=== PATIENT | male | born 1965 | race Hispanic/Latino ===

== ENCOUNTER 2017-02-19 07:07 | Inpatient (IN) | payer MEDICARE, OTHER ==
[2017-02-19 08:08] LABS: #Lymphocytes 0.6 thou/uL (1.20-3.40); #Monocytes 0.4 thou/uL (0.11-0.59); %Basophils 0.3 % (0.0-1.0); %Eosinophils 0.5 % (0.0-10.0); %Lymphocytes 10.2 % (21.0-51.0); %Monocytes 5.8 % (0.0-10.0); Mean Platelet Volume 7.8 fL (7.4-10.4); Red Blood Cell (RBC) Count 3.02 mill/uL (4.70-6.10)
[2017-02-19 08:32] LABS: ALT (SGPT) 31 U/L (8-55); AST (SGOT) 31 U/L (5-34); Alkaline Phosphatase 98 U/L (40-150); Anion Gap 33 mmol/L (10-20); BUN (Urea Nitrogen) 100 mg/dL (8.9-20.6); Bilirubin, Total 0.3 mg/dL (0.2-1.2); Calc. Creatinine Clearance 0 mL/min (70-130); Calcium 8.4 mg/dL (7.8-10.44); Carbon Dioxide 11 mmol/L (22-29); Chloride 85 mmol/L (98-107); Estimated GFR-MDRD 3; Globulin 2.6 g/dL (2.4-3.5); Lipase 437 U/L (8-78); Magnesium 2.4 mg/dL (1.6-2.6)
[2017-02-19 08:32] LABS: Troponin I 0.013 ng/mL (< 0.028)
[2017-02-19 08:39] LABS: Phosphorus 11.7 mg/dL (2.3-4.7)
[2017-02-19] MEDS ORDERED: Insulin Regular 300 UNITS/3 ML VIAL ONE (09:27)
[2017-02-19] MEDS ORDERED: Ondansetron HCl/PF 4 MG/2 ML Vial ONE (09:27)
[2017-02-19] MEDS ORDERED: Insulin Regular 100 units/100 ml in NS IVPB SCH (09:45)
--- NOTE | 2017-02-19 09:58 | RAD ---
CHEST 1 VIEW: HISTORY: Nausea, vomiting, diarrhea. COMPARISON: Chest 1 view 12/18/16. FINDINGS: Heart size is upper limits of normal. No pneumothorax or effusion. IMPRESSION: Cardiac size upper limits of normal. POS: [facility]
[2017-02-19] MEDS ORDERED: Ondansetron HCl/PF 4 MG/2 ML Vial IVP PRN (11:14)
[2017-02-19] MEDS ORDERED: Ondansetron ODT 4 MG TAB SL PRN (11:14)
[2017-02-19] MEDS ORDERED: Sodium Chloride 0.9% 1,000 ML IV SCH ×2 (11:14→15:45)
[2017-02-19 11:21] VITALS: BMI 27.8
[2017-02-19] MEDS ORDERED: Epoetin (ESRD) 20,000 UNITS/ML SC SCH (14:00)
--- NOTE | 2017-02-19 15:19 | HP ---
HISTORY OF PRESENT ILLNESS: Mr. Winslow is a 51-year-old male who came to the ER earlier toda y with complaint of generalized weakness, diffuse body ache and according to the patient, his proble ms started day before yesterday with multiple episodes of diarrhea and also vomiting. He was evalua jami in the ER, he was found to have elevated blood sugar. We have a glucose of 682 and he was also noticed to be very acidotic. He is being admitted because of DKA. He denies any associated fever. PAST MEDICAL HISTORY: Remarkable for insulin-requiring diabetes mellitus which was diagnosed about 25 years ago and he claims that he has been compliant to his insulin. He is also known to have hist ory of diabetic retinopathy. He had previous laser therapy in the past. He is known to have hypert ension, previous CVA about 2 months ago and also he has end-stage renal disease, he was on dialysis. He started dialysis about 2 years ago and more recently he had a PD catheter placed and he is to [facility] peritoneal dialysis. He denies any history of chronic lung disease. He denies heart disease, denies liver disease. PAST SURGICAL HISTORY: Remarkable for dialysis access placement. He claims to have allergy to metf ormin, which caused him to have a skin rash. SOCIAL HISTORY: He is a former smoker. Last time he smoked was more than 20 years ago. He denies ETOH abuse. He denies drug abuse. FAMILY HISTORY: Reviewed and is remarkable for hypertension and also diabetes mellitus. MEDICATIONS: Prior to admission, he was on alprazolam, amlodipine, aspirin 325 mg daily, Lipitor 40 mg every day, carvedilol, gabapentin, Humalog and also detemir insulin. REVIEW OF SYSTEMS: CONSTITUTIONAL: Admits to generalized weakness. He denies any fever. HEENT: No headache, no ocular pain, no sore throat, no rhinorrhea, no earache, no epistaxis. NECK: No neck pain, no neck stiffness. CARDIOVASCULAR: No shortness of breath. No chest pain. PULMONARY: No coughing. GASTROINTESTINAL: Admits to diarrhea, vomiting, no abdominal pain. GENITOURINARY: No dysuria, no hematuria. ENDOCRINOLOGY: No heat or cold intolerance. Admits to polydipsia. MUSCULOSKELETAL: Admits to diffuse muscle pain. HEMATOLOGY: No abnormal bleeding, no ecchymosis. LYMPHATIC: No palpable lymphadenopathy, no painful lymphadenopathy. SKIN: No rash, no itching. ALLERGIES: No hay fever. NEUROLOGIC: No seizure. PSYCHIATRIC: No anxiety, no depression. PHYSICAL EXAMINATION: GENERAL: At the current time, he is alert, oriented, sick looking. VITAL SIGNS: His latest vital signs show a temperature of 98.6, pulse rate 63, respiratory rate 18, blood pressure 129/52. HEENT: His head is normocephalic and atraumatic. Both his pupils are equal, reactive. Ears and no se normal. Oral mucosa is moist. Pharyngeal area is clear with no exudate, no hyperemia. NECK: Supple. There is no distention of the jugular vein. No lymphadenopathy felt. Thyroid gland not palpable. There is no carotid bruit. Chest symmetrical with regular S1, S2. CHEST: Lungs are clear. ABDOMEN: Soft. Bowel sounds are heard. Could not appreciate any organomegaly. There is a periton eal dialysis catheter in place. Exit site is right limb. EXTREMITIES: He has some skin changes in both lower extremities consistent with venous insufficienc y. NEUROLOGIC: Neurologically, he moves all extremities. LABORATORY DATA: CBC showed WBC of 6, hemoglobin of 9.8, hematocrit of 30, MCV of 94.4, platelet 16 1. Chemistry and electrolytes show sodium of 123, potassium 5.7, chloride 85, CO2 11, BUN 100, crea tinine 17.73, glucose 682, calcium 8.4, phosphorus 11.7, magnesium 2.4, bilirubin 0.3, AST 31, ALT 3 1, alkaline phosphatase 98. Troponin is 0.013. BNP 649, total protein 6, albumin 3.4, globulin 2.6 , lipase 473. Beta hydroxybutyrate is 5.66. His chest x-ray was reported to show cardiac size in t he upper limit of normal, no acute abnormality. ASSESSMENT AND PLAN: This is a 51-year-old man with history of insulin-requiring diabetes mellitus, hypertension, diabetic retinopathy, previous cerebrovascular accident, end-stage renal dis ease, now on hemodialysis, soon to start peritoneal dialysis who was admitted with diabetic ketoacid osis. Please see orders.
[2017-02-19 16:39] LABS: Anion Gap 26 mmol/L (10-20); BUN (Urea Nitrogen) 102 mg/dL (8.9-20.6); Calc. Creatinine Clearance 6 mL/min (70-130); Calcium 8.4 mg/dL (7.8-10.44); Carbon Dioxide 17 mmol/L (22-29); Chloride 93 mmol/L (98-107); Estimated GFR-MDRD 3
[2017-02-19] MEDS ORDERED: Simethicone Chewable 80 MG TAB PO PRN (16:49)
[2017-02-19] MEDS ORDERED: Dextrose 5% in Water 1,000 ML IV SCH (17:00)
[2017-02-19] MEDS: Sevelamer Carbonate 800 MG TAB PO SCH (17:02)
[2017-02-19] MEDS ORDERED: Dextrose 5% in Water 1,000 ML IV PRN (17:12)
[2017-02-19] MEDS ORDERED: Dextrose 50% Abboject 50 ML SYRINGE IVP PRN (17:12)
[2017-02-19] MEDS: Sodium Chloride 0.9% 1,000 ML IV SCH ×2 (17:25→23:10)
--- NOTE | 2017-02-19 23:03 | CON ---
DATE OF CONSULTATION: 02/19/2017 CONSULTING PHYSICIAN: REASON FOR CONSULTATION: End-stage renal disease evaluation and care. REASON FOR ADMISSION: DKA. HISTORY OF PRESENT ILLNESS: A 51-year-old male with history of CVA, end-stage renal disease, hypoth yroidism, type 1 diabetes, hyperlipidemia, who came to the hospital with not feeling well and was fo und to have DKA. He is recently started on peritoneal dialysis and has been doing that at home, but he has been feeling good with that. His blood pressure is controlled, less headache. He does not have much fluid. He has mild leg swelling in the right leg. No nausea, vomiting, no chest pain or palpitations. No skin rashes. No sick contacts. No fever or chills reported. PAST MEDICAL HISTORY: Positive for CVA, end-stage renal disease, hypothyroidism, osteoarthritis, ty pe 1 diabetes, hyperlipidemia, and sleep apnea. PAST SURGICAL HISTORY: Right fistula placement and PD catheter placement. HOME MEDICATIONS: Include NovoLog, Xanax, amlodipine, Lipitor, aspirin, gabapentin, Coreg, lisinopr il, and levothyroxine. ALLERGIES: METFORMIN. SOCIAL HISTORY: No smoking, alcohol or illicit drug abuse. FAMILY HISTORY: No history of any kidney disease. REVIEW OF SYSTEMS: The following complete review of systems was negative, unless otherwise mentione d in the HPI or below: Constitutional: Weight loss or gain, ability to conduct usual activities. Skin: Rash, itching. Eyes: Double vision, pain. ENT/Mouth: Nose bleeding, neck stiffness, pain, tenderness. Cardiovascular: Palpitations, dyspnea on exertion, orthopnea. Respiratory: Shortness of breath, wheezing, cough, hemoptysis, fever or night sweats. Gastrointestinal: Poor appetite, abdominal pain, heartburn, nausea, vomiting, constipation, or diar adrianna. Genitourinary: Urgency, frequency, dysuria, nocturia. Musculoskeletal: Pain, swelling. Neurologic/Psychiatric: Anxiety, depression. Allergy/Immunologic: Skin rash, bleeding tendency. PHYSICAL EXAMINATION: GENERAL: This is a well-built male, in no apparent distress. VITAL SIGNS: Temperature 98.4, pulse 62, respiratory rate 20, blood pressure 145/65. HEENT: Atraumatic, normocephalic. Oral mucosa is moist. NECK: Supple. No masses. CARDIOVASCULAR: S1, S2 heard. Rate and rhythm regular. RESPIRATORY: Clear. ABDOMEN: Soft. MUSCULOSKELETAL: Right leg, 1+ edema. DERMATOLOGIC: No skin rash. NEUROLOGIC: Alert, awake. PSYCHIATRIC: Mood and affect normal. LABORATORY DATA: Potassium is 5.7, sodium 123, glucose was 682, phosphorus 11.7. Hemoglobin 9.9. ASSESSMENT AND PLAN: 1. End-stage renal disease. We will continue on peritoneal dialysis as tolerated. 2. Hyperkalemia, most likely from hyperglycemia. Repeat labs. 3. Hyponatremia. 4. Acidosis, most likely from diabetic ketoacidosis. 5. Hypoalbuminemia. 6. Hyperphosphatemia. We will add binders. 7. Anemia. We will give Epogen. Plan is to continue on peritoneal dialysis as tolerated. Repeat labs later in the evening and we wi ll continue PD as tolerated, PD nurse notified.
[2017-02-20] MEDS ORDERED: Insulin Regular 100 units/100 ml in NS IVPB SCH (04:15)
[2017-02-20 05:31] LABS: Anion Gap 23 mmol/L (10-20); BUN (Urea Nitrogen) 91 mg/dL (8.9-20.6); Calc. Creatinine Clearance 7 mL/min (70-130); Calcium 8.3 mg/dL (7.8-10.44); Carbon Dioxide 20 mmol/L (22-29); Chloride 95 mmol/L (98-107); Estimated GFR-MDRD 3
[2017-02-20 05:35] LABS: Phosphorus 11.4 mg/dL (2.3-4.7)
[2017-02-20] MEDS: Sevelamer Carbonate 800 MG TAB PO SCH ×3 (08:56→18:09)
[2017-02-20 11:20] LABS: pH (Venous) 7.214 (7.35-7.45)
[2017-02-20 11:21] LABS: vO2 Saturation-calc 98.5 % (0.0-100.0)
[2017-02-20 11:22] LABS: Anion Gap 15 mmol/L (-14-95); T. Carbon Dioxide 11.3 mmol/L (1.0-85.0)
--- NOTE | 2017-02-20 11:48 | PRG ---
DATE OF SERVICE: 02/20/2017 SUBJECTIVE: This is a 51-year-old gentleman being seen for end-stage renal disease. Patient denies any nausea, vomiting or chest pain. PHYSICAL EXAMINATION: GENERAL: Patient is awake, alert. VITAL SIGNS: Afebrile, pulse 63, breathing at 16, blood pressure 146/68. GENERAL APPEARANCE AND MENTAL STATUS: Fair. HEAD/NECK: Normocephalic. Atraumatic. EYES: EOMI. No deformity. EARS: Clear. No ulcers. NOSE: Intact. No lesions. MOUTH: Clear. No discharge. THROAT: Clear. No exudate. LUNGS: Clear. No crackles. CARDIAC: S1, S2. No rub. ABDOMEN: Benign. BS+. GENITALIA/RECTUM: Seaman absent. BACK/EXTREMITIES: Edema 0+ Ulcer- NEUROLOGICAL: Alert and motor intact. SKIN: Rash- Bruise- LYMPHATICS: Edema- Ulcer- LABORATORY DATA: Show hemoglobin 9.8, potassium . ASSESSMENT AND RECOMMENDATIONS: 1. Stage 6 chronic kidney disease, continue hemodialysis. 2. Hypertension, stable. 3. Anemia, stable. 4. Medications based on glomerular filtration rate are appropriate.
[2017-02-20] MEDS: Sodium Chloride 0.9% 1,000 ML IV SCH (13:19)
--- NOTE | 2017-02-20 14:37 | PDOC.PN ---
- Subjective Encounter Start Date: 02/20/17 Encounter Start Time: 12:00 Subjective: NO NEW COMPLAINTS - Objective MAR Reviewed: Yes Vital Signs & Weight: Vital Signs (12 hours) Temp Pulse Resp BP BP BP Pulse Ox 02/20/17 12:08 97.8 F 56 L 20 142/66 H 99 02/20/17 08:00 97.8 F 58 L 20 98 02/20/17 07:02 97.8 F 58 L 20 146/68 H 98 02/20/17 04:31 98 F 52 L 12 152/79 H 96 Weight Weight 194 lb 6.4 oz I&O: 02/19/17 02/20/17 02/21/17 06:59 06:59 06:59 Intake Total 2455 Output Total 3362 Balance -907 Result Diagrams: 02/19/17 07:54 02/20/17 04:38 Additional Labs: Accuchecks 02/20/17 02/20/17 02/20/17 14:21 13:14 12:12 POC Glucose 117 H 137 H 141 H 02/20/17 02/20/17 02/20/17 10:57 10:07 09:03 POC Glucose 63 L 75 132 H 02/20/17 02/20/17 02/20/17 07:59 06:49 06:05 POC Glucose 235 H 271 H 201 H 02/20/17 02/20/17 02/20/17 05:06 04:14 03:04 POC Glucose 134 H 124 H 130 H 02/20/17 02/20/17 02/20/17 02:05 01:06 00:04 POC Glucose 106 177 H 175 H 02/19/17 02/19/17 02/19/17 23:03 22:03 21:12 POC Glucose 223 H 258 H 174 H 02/19/17 02/19/17 02/19/17 20:03 19:00 18:01 POC Glucose 73 72 103 02/19/17 02/19/17 02/19/17 17:21 17:01 16:03 POC Glucose 119 H 45 L* 72 02/19/17 02/19/17 14:59 11:02 POC Glucose 123 H Greater than 550 H* Phys Exam - Physical Examination Constitutional: NAD HEENT: PERRLA, moist MMs Neck: supple, full ROM Respiratory: clear to auscultation bilateral Cardiovascular: RRR Gastrointestinal: soft Musculoskeletal: no edema Neurological: non-focal, moves all 4 limbs Psychiatric: normal affect, A&O x 3 Dx/Plan (1) DKA (diabetic ketoacidoses) Code(s): E13.10 - OTH DIABETES MELLITUS WITH KETOACIDOSIS WITHOUT COMA Status : Acute (2) DM type 2 (diabetes mellitus, type 2) Status: Chronic (3) End stage renal disease on dialysis Code(s): N18.6 - END STAGE RENAL DISEASE; Z99.2 - DEPENDENCE ON RENAL DIALYSIS Status: Chronic (4) HTN (hypertension) Code(s): I10 - ESSENTIAL (PRIMARY) HYPERTENSION Status: Chronic - Plan cont current plan of care ONCE GAP CLOSES WILL D/C INSULIN GTT AND TRANSFER TO TELE * .
[2017-02-20 16:23] LABS: Anion Gap 24 mmol/L (10-20); BUN (Urea Nitrogen) 92 mg/dL (8.9-20.6); Calc. Creatinine Clearance 6 mL/min (70-130); Calcium 8.2 mg/dL (7.8-10.44); Carbon Dioxide 18 mmol/L (22-29); Chloride 96 mmol/L (98-107); Estimated GFR-MDRD 3
[2017-02-20] MEDS ORDERED: Dextrose 50% Abboject 50 ML SYRINGE IVP PRN (16:36)
[2017-02-20] MEDS ORDERED: Dextrose 5% in Water 1,000 ML IV PRN (16:36)
[2017-02-20] MEDS ORDERED: HumaLOG 300 UNITS/3 ML VIAL SC PRN ×2 (16:36)
[2017-02-20] MEDS ORDERED: Insulin Detemir 100 UNITS/ML 40 UNITS in Pre-Filled Syringe 1 EACH SC SCH (16:45)
--- NOTE | 2017-02-20 17:06 | PDOC.EVN ---
Event Note - Event Note Event Note: Patient with labile blood sugar, will add sc insulin. HAGMA addressed by renal, he will undergo dialysis tomorrow per Dr. Britton.
[2017-02-20] MEDS ORDERED: Gentamicin TOPICAL Ointment 0.1% 15 gm Tube TOP PRN (20:36)
[2017-02-21] MEDS ORDERED: Insulin Detemir 100 UNITS/ML 40 UNITS in Pre-Filled Syringe 1 EACH SC SCH (09:00)
[2017-02-21] MEDS: Sevelamer Carbonate 800 MG TAB PO SCH ×3 (09:18→16:36)
[2017-02-21] MEDS: Sodium Chloride 0.9% 1,000 ML IV SCH (09:19)
--- NOTE | 2017-02-21 13:53 | PDOC.PN ---
- Subjective Encounter Start Date: 02/21/17 Encounter Start Time: 13:51 Patient seen at bedside. No overnight events, however he has had episodes of hypoglycemia. No new complaints. - Objective MAR Reviewed: Yes Vital Signs & Weight: Vital Signs (12 hours) Temp Pulse Resp BP Pulse Ox 02/21/17 12:00 97.4 F L 72 18 168/81 H 98 02/21/17 08:22 97.9 F 65 14 152/76 H 97 02/21/17 08:00 97.9 F 65 14 97 02/21/17 04:00 98.3 F 58 L 18 153/78 H 98 Weight Weight 198 lb 3.2 oz I&O: 02/20/17 02/21/17 02/22/17 06:59 06:59 06:59 Intake Total 2455 1190 600 Output Total 3362 Balance -907 1190 600 Result Diagrams: 02/19/17 07:54 02/20/17 15:51 Additional Labs: Accuchecks 02/21/17 02/21/17 02/21/17 13:29 13:06 11:57 POC Glucose 117 H 114 H 119 H 02/21/17 02/21/17 02/21/17 11:04 10:15 09:16 POC Glucose 57 L* 70 91 02/21/17 02/21/17 02/21/17 08:07 07:01 06:01 POC Glucose 87 64 L 73 02/21/17 02/21/17 02/21/17 04:55 04:01 03:01 POC Glucose 85 83 78 02/21/17 02/21/17 02/20/17 02:02 01:07 23:59 POC Glucose 77 78 79 02/20/17 02/20/17 02/20/17 22:56 22:02 21:03 POC Glucose 81 108 168 H 02/20/17 02/20/17 02/20/17 20:00 19:00 17:59 POC Glucose 214 H 314 H 319 H 02/20/17 02/20/17 02/20/17 16:54 14:59 14:21 POC Glucose 277 H 101 117 H Phys Exam - Physical Examination Constitutional: NAD HEENT: moist MMs Neck: no JVD Respiratory: no wheezing Peritoneal catheter in place Musculoskeletal: pulses present Neurological: moves all 4 limbs Psychiatric: A&O x 3 Dx/Plan (1) DKA (diabetic ketoacidoses) Code(s): E13.10 - OTH DIABETES MELLITUS WITH KETOACIDOSIS WITHOUT COMA Status : Acute (2) Chronic anemia Code(s): D64.9 - ANEMIA, UNSPECIFIED Status: Chronic (3) End stage renal disease on dialysis Code(s): N18.6 - END STAGE RENAL DISEASE; Z99.2 - DEPENDENCE ON RENAL DIALYSIS Status: Chronic (4) HLD (hyperlipidemia) Code(s): E78.5 - HYPERLIPIDEMIA, UNSPECIFIED Status: Chronic (5) HTN (hypertension) Code(s): I10 - ESSENTIAL (PRIMARY) HYPERTENSION Status: Chronic - Plan cont current plan of care, psych social worker, out of bed/ambulate * Check stat CMET. If his gap has closed, will d/c insulin drip and restart Levemir. * He will likely require a lower dose of Levemir given ESRD * Continue with PD per nephrology * Restart Hydralazine and Amlodipine. * Daily Labs
[2017-02-21 14:33] LABS: ALT (SGPT) 24 U/L (8-55); AST (SGOT) 24 U/L (5-34); Alkaline Phosphatase 89 U/L (40-150); Anion Gap 22 mmol/L (10-20); BUN (Urea Nitrogen) 82 mg/dL (8.9-20.6); Bilirubin, Total 0.4 mg/dL (0.2-1.2); Calc. Creatinine Clearance 7 mL/min (70-130); Calcium 8.2 mg/dL (7.8-10.44); Carbon Dioxide 20 mmol/L (22-29); Chloride 96 mmol/L (98-107); Estimated GFR-MDRD 3; Globulin 2.5 g/dL (2.4-3.5); Protein, Total 5.5 g/dL (6.0-8.3)
[2017-02-21] MEDS: HumaLOG 300 UNITS/3 ML VIAL SC PRN (16:35)
[2017-02-21] MEDS: hydrALAZINE 25 MG TAB PO SCH ×2 (16:35→20:54)
--- NOTE | 2017-02-21 17:08 | PRG ---
DATE OF SERVICE: 02/21/2017 SUBJECTIVE: This is a 51-year-old gentleman being seen for end-stage renal disease. Patient denies any nausea, vomiting or chest pain. PHYSICAL EXAMINATION: GENERAL: Patient is awake, alert. VITAL SIGNS: Afebrile, pulse 75, breathing at 16, blood pressure 152/76. GENERAL APPEARANCE AND MENTAL STATUS: Fair. HEAD/NECK: Normocephalic. Atraumatic. EYES: EOMI. No deformity. EARS: Clear. No ulcers. NOSE: Intact. No lesions. MOUTH: Clear. No discharge. THROAT: Clear. No exudate. LUNGS: Clear. No crackles. CARDIAC: S1, S2. No rub. ABDOMEN: Benign. BS+. GENITALIA/RECTUM: Seaman absent. BACK/EXTREMITIES: Edema 0+ Ulcer- NEUROLOGICAL: Alert and motor intact. SKIN: Rash- Bruise- LYMPHATICS: Edema- Ulcer- LABORATORY DATA: Show potassium 4. ASSESSMENT: 1. Stage 6 chronic kidney disease. Continue peritoneal dialysis. 2. Hypertension, stable. 3. Anemia, stable. 4. Medications based on glomerular filtration rate are appropriate.
[2017-02-21] MEDS ORDERED: Insulin Detemir 100 UNITS/ML 30 UNITS in Pre-Filled Syringe SC SCH (21:00)
[2017-02-22] MEDS: hydrALAZINE 25 MG TAB PO SCH ×2 (04:55→12:26)
[2017-02-22] MEDS: Sodium Chloride 0.9% 1,000 ML IV SCH (04:57)
[2017-02-22] MEDS: HumaLOG 300 UNITS/3 ML VIAL SC PRN (06:16)
[2017-02-22] MEDS ORDERED: Amlodipine 10 MG TAB PO SCH (09:00)
[2017-02-22] MEDS: Sevelamer Carbonate 800 MG TAB PO SCH ×2 (09:23→12:26)
--- NOTE | 2017-02-22 12:14 | PRG ---
DATE OF SERVICE: 02/22/2017 SUBJECTIVE: This is a 51-year-old gentleman being seen for end-stage renal disease. The patient de nies any nausea, vomiting or chest pain. The patient tolerated PD well with 2 liters ultrafiltratio n. PHYSICAL EXAMINATION: GENERAL: Patient is awake, alert. VITAL SIGNS: Afebrile, pulse 70, breathing at 16, blood pressure 155/78. GENERAL APPEARANCE AND MENTAL STATUS: Fair. HEAD/NECK: Normocephalic. Atraumatic. EYES: EOMI. No deformity. EARS: Clear. No ulcers. NOSE: Intact. No lesions. MOUTH: Clear. No discharge. THROAT: Clear. No exudate. LUNGS: Clear. No crackles. CARDIAC: S1, S2. No rub. ABDOMEN: Benign. BS+. GENITALIA/RECTUM: Seaman absent. BACK/EXTREMITIES: Edema 0+ Ulcer- NEUROLOGICAL: Alert and motor intact. SKIN: Rash- Bruise- LYMPHATICS: Edema- Ulcer- LABORATORY DATA: Show potassium 4. ASSESSMENT: 1. Stage 6 chronic kidney disease. Continue daily peritoneal dialysis. 2. Hypertension, stable. 3. Anemia, stable. 4. Medications based on glomerular filtration rate are appropriate.
--- NOTE | 2017-02-22 14:25 | PDOC.PN ---
- Subjective Encounter Start Date: 02/22/17 Encounter Start Time: 14:24 Patient seen at bedside. No overnight events. Basal insulin was held due to fears of hypoglycemia. - Objective MAR Reviewed: Yes Vital Signs & Weight: Vital Signs (12 hours) Temp Pulse Resp BP BP Pulse Ox 02/22/17 12:26 72 02/22/17 11:00 98.2 F 72 18 155/78 H 96 02/22/17 09:22 64 02/22/17 08:00 98 F 64 16 02/22/17 07:00 98.6 F 64 16 163/73 H 97 02/22/17 06:01 98.4 F 65 20 157/63 H 97 02/22/17 04:55 98.4 F 63 16 180/81 H 180/81 H 98 Weight Weight 198 lb 4.8 oz I&O: 02/21/17 02/22/17 02/23/17 06:59 06:59 06:59 Intake Total 1190 2050 Output Total 2460 Balance 1190 -410 Result Diagrams: 02/19/17 07:54 02/21/17 13:54 Additional Labs: Accuchecks 02/22/17 02/21/17 02/21/17 06:07 20:52 16:29 POC Glucose 485 H 93 161 H Phys Exam - Physical Examination Constitutional: NAD HEENT: moist MMs Neck: no JVD Respiratory: clear to auscultation bilateral Cardiovascular: RRR Gastrointestinal: soft Peritoneal Dialysis present Musculoskeletal: pulses present Neurological: moves all 4 limbs Psychiatric: A&O x 3 Dx/Plan (1) DKA (diabetic ketoacidoses) Code(s): E13.10 - OTH DIABETES MELLITUS WITH KETOACIDOSIS WITHOUT COMA Status : Resolved (2) Chronic anemia Code(s): D64.9 - ANEMIA, UNSPECIFIED Status: Chronic (3) End stage renal disease on dialysis Code(s): N18.6 - END STAGE RENAL DISEASE; Z99.2 - DEPENDENCE ON RENAL DIALYSIS Status: Chronic (4) HLD (hyperlipidemia) Code(s): E78.5 - HYPERLIPIDEMIA, UNSPECIFIED Status: Chronic (5) HTN (hypertension) Code(s): I10 - ESSENTIAL (PRIMARY) HYPERTENSION Status: Chronic - Plan cont current plan of care * Continue with current management. * PD per nephrology * Decrease Levemir to 30 units on D/C * D/C today
[2017-02-22 15:27] VITALS: BP 167/80; TEMP 98.1
--- NOTE | 2017-02-22 17:18 | DIS ---
DATE OF ADMISSION: 02/19/2017 DATE OF DISCHARGE: 02/22/2017 DISCHARGE DISPOSITION: Home. DISCHARGE FOLLOWUP: With Dr. Davalos as an outpatient. DISCHARGE DIAGNOSES: 1. Diabetic ketoacidosis, resolving. 2. End-stage renal disease on peritoneal dialysis. 3. Hypertension. 4. Diabetes mellitus type 2. 5. History of cerebrovascular accident. DISCHARGE MEDICATIONS: 1. Hydralazine 25 mg p.o. 4 times a day. 2. Lisinopril 10 mg p.o. daily. 3. Levothyroxine 200 mcg p.o. daily. 4. Levemir 30 units subQ at bedtime, which is decreased from 40 units subQ at bedtime. 5. Insulin sliding scale. 6. Gabapentin 300 mg p.o. b.i.d. 7. Carvedilol 25 mg p.o. b.i.d. 8. Lipitor 40 mg p.o. at bedtime. 9. Aspirin 325 mg p.o. daily. 10. Amlodipine 10 mg p.o. daily. 11. Xanax 0.5 mg p.o. as needed. INPATIENT CONSULTATION: Dr. Siu, Nephrology. INPATIENT PROCEDURES: None. INPATIENT RADIOGRAPHIC EXAMINATIONS: Chest x-ray which revealed mild cardiomegaly. BRIEF HOSPITAL COURSE: Mr. Jeffrey Winslow is a 51-year-old male who presented to the emergency room com plaining of generalized weakness. Initial evaluation in the emergency room was found that the patie nt had an elevated blood sugars 682 which noticed to be extremely acidotic. Clinically and laborato ry leon, patient appeared to be in DKA. He was placed on an insulin drip and subsequently placed to intermediate care unit. While here, the patient did undergo his routine peritoneal dialysis. His blood work did improve and he became less acidotic. He continued to have peritoneal dialysis. The patient's metabolic panel improved. He was placed back on his Levemir; however, he did have episode s of hypoglycemia and subsequently he was placed on lower dose of Levemir with 30 units subQ at bedt tamia. He tolerated the test well. His blood sugars have been controlled. He has tolerated his elroy toneal dialysis. He is back to his baseline. He will be discharged home later today in stable cond ition with continual undergoing of his nightly peritoneal dialysis. He will be discharged home late r today in stable condition. DISCHARGE DIET: Diabetic. ACTIVITY: As tolerated. RESTRICTIONS: None. CODE STATUS: FULL CODE. ALLERGIES: METFORMIN. DISCHARGE FOLLOWUP: Dr. Davalos as an outpatient. I have explained all this to the patient at bedside. He is agreeable to the plan of discharge. All questions have been answered. Total time required to prepare for discharge 32 minutes.
== END 2017-02-22 17:42 | disposition home or self-care (01) | DRG 637 ==
LOC: ERS 07:07 → IMCU/EMU 09:00
PROVIDERS: ADMIT Hospitalist; ATTEND Hospitalist
PROC: 3E1M39Z Irrigation of Peritoneal Cavity using Dialysate, Percutaneous Approach (ICD-10-PCS; principal; 2017-02-19)
DX: E11.10 Type 2 diabetes mellitus with ketoacidosis without coma (principal); N18.6 End stage renal disease; I12.0 Hypertensive chronic kidney disease with stage 5 chronic kidney disease or end stage renal disease; E87.1 Hypo-osmolality and hyponatremia; I10 Essential (primary) hypertension; Z87.891 Personal history of nicotine dependence; Z79.4 Long term (current) use of insulin; Z86.73 Personal history of transient ischemic attack (TIA), and cerebral infarction without residual deficits; E11.319 Type 2 diabetes mellitus with unspecified diabetic retinopathy without macular edema; E11.22 Type 2 diabetes mellitus with diabetic chronic kidney disease; Z99.2 Dependence on renal dialysis; E11.649 Type 2 diabetes mellitus with hypoglycemia without coma; E03.9 Hypothyroidism, unspecified; E78.5 Hyperlipidemia, unspecified; Z79.82 Long term (current) use of aspirin; G47.30 Sleep apnea, unspecified; E88.09 Other disorders of plasma-protein metabolism, not elsewhere classified; E83.39 Other disorders of phosphorus metabolism; D63.1 Anemia in chronic kidney disease
CPT/HCPCS: 36415; 36416; 71010; 80048; 80053; 82010; 82330; 82553; 82803; 83630; 83690; 83735; 83880; 84100; 84484; 85014; 85025; 87015; 87045; 87046; 87324; 87340; 87449; 87899; 90945; 93005; 96361; 96365; 96375; G0257; J1815; J2405; J7050; Q4081